=== PATIENT | female | born 1965 | race Two or more races ===

== ENCOUNTER 2021-07-07 15:07 | Outpatient (REF) | payer BC, SELFPAY ==
--- NOTE | ~2021-07-07 | MR_ITS ---
EXAMINATION: MR BRAIN WITHOUT AND WITH CONTRAST CLINICAL INFORMATION: Vertigo. Acoustic neuroma. COMPARISON: There are no prior studies available for comparison at time of dictation. TECHNIQUE: Multiplanar, multisequence MRI of the brain was obtained before and after the intravenous administration of 8.5 mL Gadavist. FINDINGS: The 7th and 8th cranial nerve complexes are normal in course and caliber. There is a small branch of the basilar artery on the right which runs between the cisternal 7th and 8th cranial nerves. A loop of a branch of the basilar artery on the left extends into the left internal auditory canal without impingement on the nerve roots in the internal auditory canal. No signal abnormality is seen in the inner ear structures on the precontrast axial T1-weighted sequence. Fluid signal is preserved within the cochleae, semicircular canals, and vestibules on the high-resolution axial FIESTA sequence. No cerebellopontine angle lesion is noted. There is no abnormal labyrinthine or intracanalicular enhancement on postcontrast imaging. No diffusion abnormalities are identified to suggest an acute or subacute infarct. No mass effect or midline shift is seen. The ventricles and sulci appear normal. Brain parenchymal signal is unremarkable. No extra-axial fluid collections are seen. The brainstem appears normal. On postcontrast imaging, there is no abnormal parenchymal or leptomeningeal enhancement. There is a small area of low gradient signal along the right tentorial leaflet posteromedially, which may be consistent with a small calcification. There is no abnormal enhancement of this area. The cerebellar tonsils have normal contour and position, and the craniocervical junction appears normal. Marrow signal and midline structures are normal. The major intracranial flow-voids at the level of the [place] are preserved. The dural venous sinus flow-voids are maintained. The mastoid air cells and paranasal sinuses are well-aerated. MR/MR head/brain wo/w con IMPRESSION: 1. There are no acute bleeds or infarcts. There are no masses or areas of abnormal enhancement. 2. There are small vascular branches of the basilar artery at the CP angles bilaterally as described above. There are no masses or areas of abnormal enhancement in the internal auditory canals or CP angles.
== END 2021-07-07 15:08 | disposition home or self-care (01) ==
LOC: HO.MRI 15:07
PROVIDERS: PCP Physician Assistant; Visit Provider Psychiatry & Neurology Neurology
DX: R42 Dizziness and giddiness (principal); D33.3 Benign neoplasm of cranial nerves
CPT/HCPCS: 70553; A9585